=== PATIENT | male | born 1960 | race Caucasian/White ===

== ENCOUNTER 2017-09-06 13:19 | Emergency (ER) | payer OTHER ==
[2017-09-06] MEDS: NITROGLYCERIN 0.4 MG TAB SL PRN ×3 (13:23→13:43)
[2017-09-06] MEDS ORDERED: ASPIRIN 81 MG CHEWABLE CTB PO STA (13:26)
[2017-09-06] MEDS ORDERED: SODIUM CHLORIDE 0.9% FLUSH 10 ML SOL IV PRN (13:26)
[2017-09-06 13:31] LABS: BASOPHILS % (AUTO) 1 % (0-3); EOSINOPHILS % (AUTO) 2 % (0-9); HEMATOCRIT 40 % (39-53); HEMOGLOBIN 13.7 gm/dl (13.5-17.7); MEAN CORPUSCULAR HEMOGLOBIN 30.4 pg (27.0-32.0); MEAN CORPUSCULAR HGB CONC 34.8 gm/dl (32.0-36.0); MEAN CORPUSCULAR VOLUME 87 fL (80-100); MONOCYTES % (AUTO) 4.5 % (0-12); NEUTROPHILS % (AUTO) 71.1 % (37-80)
[2017-09-06 13:45] LABS: INR 0.96 (0.86-1.12)
[2017-09-06 14:02] LABS: BLOOD UREA NITROGEN 8 mg/dl (7-18); CALCIUM 8.2 mg/dl (8.5-10.1); CARBON DIOXIDE 24.8 mEq/L (21-32); CHLORIDE 100 mMol/L (98-107); CREATININE 0.87 mg/dl (0.80-1.30); GLOM FILT RATE 90 mL/min (>60); GLUCOSE 121 mg/dl (74-106); POTASSIUM 4.1 mMol/L (3.5-5.1); SODIUM 133 mMol/L (136-145); TROP I < 0.017 ng/ml (0.000-0.056)
[2017-09-06 14:53] VITALS: PULSE 88; O2SAT 96
[2017-09-06 14:55] VITALS: TEMP 98.7
[2017-09-06 17:15] VITALS: BP 126/81; RESP 16
== END 2017-09-06 15:50 | disposition home or self-care (01) | DRG 311 ==
LOC: MERGE 13:19 → ED 13:19
DX: I20.8 Other forms of angina pectoris (principal); I10 Essential (primary) hypertension; R06.02 Shortness of breath; R79.1 Abnormal coagulation profile
CPT/HCPCS: 71045; 71275; 80048; 84484; 85025; 85378; 85610; 85730; 93005; 99283; 99284; Q9967; A9270-GY